=== PATIENT | female | born 1940 | race Caucasian/White ===

== ENCOUNTER 2022-09-07 15:32 | Inpatient (IN) | payer MEDICARE, OTHER ==
[~2022-09-07] VITALS: Ht 165.1 cm; Wt 77.1 kg
[2022-09-07] MEDS ORDERED: HYDROCODONE/APAP 5-325MG TABLET ONE (15:37)
[2022-09-07] MEDS ORDERED: ESTR1TAB17 MT (15:40)
[2022-09-07] MEDS ORDERED: ATOR20TA (15:40)
[2022-09-07] MEDS ORDERED: IPRA42SP BNOSTRILS (15:40)
[2022-09-07] MEDS ORDERED: BUPR-319 MT (15:40)
[2022-09-07] MEDS ORDERED: PHEN37.58 MT (15:40)
[2022-09-07] MEDS ORDERED: LEVO50TA8 MT (15:40)
[2022-09-07] MEDS ORDERED: COLE1TAB2 MT (15:40)
--- NOTE | 2022-09-07 15:44 | NUR ---
PT IS IN ROOM #1A. DR CASTELLANO EVALUATED THE PT.
[2022-09-07] MEDS ORDERED: HYDROCODONE/APAP 5-325MG TABLET PO ONE (15:45)
[2022-09-07] MEDS ORDERED: IV NORMAL SALINE 1000 ML BAG IV ONE (16:45)
[2022-09-07] MEDS ORDERED: ONDANSETRON 4 MG/2 ML VIAL IV ONE ×2 (16:45→18:45)
[2022-09-07] MEDS ORDERED: HYDROMORPHONE 1 MG/1 ML DISP.SYRIN IV ONE (16:45)
[2022-09-07] MEDS ORDERED: ONDANSETRON 4 MG/2 ML VIAL ONE ×2 (16:49→18:44)
[2022-09-07] MEDS ORDERED: HYDROMORPHONE 1 MG/1 ML DISP.SYRIN ONE (16:49)
[2022-09-07 17:02] LABS: HEMATOCRIT 39.3 % (31.2-41.9); MEAN CORPUSCULAR HEMOGLOBIN 29.6 uug (24.7-32.8); PLATELET COUNT (AUTO) 235 K/uL (179-408)
[2022-09-07 17:15] LABS: CREATININE 1.3 mg/dL (0.6-1.3); POTASSIUM 4.4 mmol/L (3.5-5.1)
[2022-09-07] MEDS ORDERED: PROPOFOL 200 MG/20 ML BOTTLE IV ONE (17:15)
[2022-09-07] MEDS ORDERED: PROPOFOL 200 MG/20 ML BOTTLE ONE (17:25)
--- NOTE | 2022-09-07 17:30 | NUR ---
Moderate sedation for closed reduction of left hip. spoke with patient and son (at bedside) about procedure and plan of care. Diogenes MIRZA, David TAILING HAND, Lucho BRADSHAWP, and myself at bedside. Please see moderate sedation for further procedure information.
--- NOTE | 2022-09-07 17:36 | NUR ---
CLOSED REDUCTION OF LEFT HIP WITH MODERATE SEDATION WAS PERFORMED BY DR CASTELLANO. PT TOLERATED TO PROCEDURE WITHOUT COMPLICATIONS. NO SOB, NO N/V. CONTINUE TO MONITOR THE PT.
[2022-09-07] MEDS ORDERED: ONDANSETRON 4 MG/2 ML VIAL IV PRN (18:45)
[2022-09-07] MEDS ORDERED: REMEDY ESSENTIAL ZINC PASTE 113 GM TP PRN (18:45)
[2022-09-07] MEDS ORDERED: HOME MED MISCELLANEOUS XX SCH ×2 (18:45)
[2022-09-07] MEDS ORDERED: ACETAMINOPHEN 325 MG TABLET PO PRN (18:45)
[2022-09-07] MEDS ORDERED: MAGNESIUM HYDROXIDE 30 ML LIQUID UDC PO PRN (18:45)
--- NOTE | 2022-09-07 19:28 | NUR ---
Zofran 4mg IV @1845 given by previous nurse Diogenes MIRZA. RN did not document.
--- NOTE | 2022-09-07 19:30 | NUR ---
Patient placed on bedpan. Patient urinated large yellow urine.
--- NOTE | 2022-09-07 19:45 | NUR ---
Patient has been admitted to third floor room 330
--- NOTE | 2022-09-07 20:15 | NUR ---
Dr. Bojorquez spoke with Dr. Gonzalez for orthopedic consult.
--- NOTE | 2022-09-07 20:46 | NUR ---
Report given to Anthony MIRZA.
[2022-09-07] MEDS ORDERED: ATORVASTATIN 20 MG TABLET PO SCH (21:00)
--- NOTE | 2022-09-07 21:17 | NUR ---
Patient voided in bed ayala. Voided large clear yellow urine.
[2022-09-07 21:25] VITALS: BP 192/81
[2022-09-07] MEDS ORDERED: LORAZEPAM 2 MG/1 ML VIAL IV PRN (21:30)
--- NOTE | 2022-09-07 21:34 | NUR ---
Patient taken to third floor room 330 via gurney with personal belongings. Patient in stable condition, no signs of distress. Anthony RN aware of patients arrival.
[2022-09-07] MEDS: HYDROCODONE/APAP 5-325MG TABLET PO PRN (22:29)
[2022-09-07] MEDS: ENOXAPARIN SODIUM 40 MG/0.4 ML DISP.SYRIN SQ SCH (22:30)
[2022-09-07] MEDS: IV D5/ 0.9% NACL 1,000 ML IV PRN (22:32)
[2022-09-07] MEDS ORDERED: hydrALAZINE HCL 20 MG/1 ML VIAL IV PRN (23:30)
--- NOTE | 2022-09-08 | NUR ---
@2130 PATIENT ADMITTED FROM ER IN STABLE CONDITION. GENTLY TRANSFERRED TO BED AND MADE COMFORTABLE. ALL BELONGINGS INVENTORIED. ALL DUE MEDICATIONS GIVEN ORDERED. IV FLUID STARTED D5 NS @ 50CC/HR VIA RFA IV LINE. PATIENT NOTED WITH ORDER FOR FRANKS CATHETER INSERTION BUT PATIENT IS REFUSING TO HAVE FRANKS CATHETER AT THIS TIME AND PATIENT IS OKAY WITH [place]. MADE AWARE. @2200 PATIENT'S INITIAL V/S TAKEN AND NOTED WITH BP 195/81, HR 61, TEMP 98.5. NOTIFIED WITH NEW FOR HYDRALAZINE IVP Q6H PRN FOR SBP> 160 NOTED AND CARRIED OUT. PATIENT C/O PAIN OF LEFT HIP 03/24. PAIN MEDICATION GIVEN. REASSESSMENT DONE AND MEDICATION NOTED EFFECTIVE. PATIENT SLEEPING BUT EASILY AMUSABLE. V/S TAKEN AND NOTED BP 155/82, HR 66, TEMP 98.4.
[2022-09-08] MEDS: HYDROMORPHONE 1 MG/1 ML DISP.SYRIN IV PRN ×2 (03:33→13:57)
[2022-09-08 04:00] VITALS: BP 152/64
[2022-09-08] MEDS: LEVOTHYROXINE SODIUM 50 MCG TABLET PO SCH (06:16)
--- NOTE | 2022-09-08 06:50 | NUR ---
patient slept well. patient was noted with c/o pain of left hip during shift. pain medication given and noted effective. no sob or distress noted. patient was noted with episode of emesis x1.Zofran ivp given to patient. RFA iv line intact and patent. iv fluids running at 50cc/hr. all needs anticipated and met. will endorse to day shift.
[2022-09-08 06:52] LABS: HEMATOCRIT 35.7 % (31.2-41.9); MEAN CORPUSCULAR HEMOGLOBIN 30.4 uug (24.7-32.8); MEAN CORPUSCULAR VOLUME 89.7 fL (75.5-95.3); PLATELET COUNT (AUTO) 210 K/uL (179-408)
[2022-09-08] MEDS ORDERED: PANTOPRAZOLE SODIUM 40 MG TABLET.DR PO SCH (07:00)
[2022-09-08 07:02] LABS: CREATININE 1.3 mg/dL (0.6-1.3); MAGNESIUM 1.7 mg/dL (1.8-2.4); PHOSPHOROUS 4.7 mg/dL (2.5-4.9); POTASSIUM 4.2 mmol/L (3.5-5.1)
[2022-09-08] MEDS: PANTOPRAZOLE SODIUM 40 MG VIAL IV SCH (08:45)
[2022-09-08] MEDS: ESTRADIOL 1 MG TABLET PO SCH (08:50)
[2022-09-08] MEDS: IPRATROPIUM BROMIDE NASAL 15 ML BOTTLE 42 MCG/SPRAY NS SCH (08:51)
[2022-09-08] MEDS ORDERED: buPROPion XL 150 MG TAB.SR.24H PO SCH (09:00)
[2022-09-08] MEDS: HYDROCODONE/APAP 5-325MG TABLET PO PRN ×2 (09:37→22:18)
[2022-09-08] MEDS ORDERED: MAGNESIUM OXIDE 400 MG TABLET PO ONE (11:00)
[2022-09-08] MEDS ORDERED: VITAMINS A AND D OINT TP PRN (13:30)
[2022-09-08] MEDS ORDERED: ACETAMINOPHEN 325 MG TABLET PO PRN (14:00)
[2022-09-08] MEDS ORDERED: PHENTERMINE 37.5 MG PO PRN (15:15)
[2022-09-08] MEDS ORDERED: [UNRECOGNIZED DRUG - OTHER] PO PRN (15:15)
[2022-09-08 15:38] VITALS: BP 148/65
[2022-09-08] MEDS: COLESTIPOL 1 GM PO SCH (15:40)
--- NOTE | 2022-09-08 15:44 | NUR ---
patient son took her four rings home
[2022-09-08 16:15] VITALS: BP 130/67
[2022-09-08] MEDS ORDERED: diphenhydrAMINE 50 MG/1 ML VIAL IV PRN (17:45)
--- NOTE | 2022-09-08 18:52 | NUR ---
patient is alert, oriented x4, no sob, respirations are even nonlabored, skin warm and dry to touch, pain is managed with pain medications, patient teaching provided to be NPO midnight. patient verbalized understanding of it.
[2022-09-08 20:29] VITALS: BP 194/82
[2022-09-08] MEDS: ENOXAPARIN SODIUM 40 MG/0.4 ML DISP.SYRIN SQ SCH (21:00)
[2022-09-09] MEDS: IV D5/ 0.9% NACL 1,000 ML IV PRN (00:44)
[2022-09-09] MEDS: ZOLPIDEM 5 MG TABLET PO PRN (02:48)
[2022-09-09] MEDS: HYDROCODONE/APAP 5-325MG TABLET PO PRN (04:24)
[2022-09-09 04:35] VITALS: BP 137/59
--- NOTE | 2022-09-09 05:33 | NUR ---
Patient AAOx3 Pending Surgery to Left hip this am. C/o pain and discomfort lt hip repositioned Medication administered as ordered. Ambien given . NPO after midnight. Rufuse the vicente catheter placement. Preop checklist done.
[2022-09-09 06:25] LABS: HEMATOCRIT 35.6 % (31.2-41.9); MEAN CORPUSCULAR HEMOGLOBIN 30.1 uug (24.7-32.8); MEAN CORPUSCULAR VOLUME 90.2 fL (75.5-95.3); PLATELET COUNT (AUTO) 179 K/uL (179-408)
[2022-09-09 06:44] LABS: CREATININE 1.1 mg/dL (0.6-1.3); POTASSIUM 4.1 mmol/L (3.5-5.1)
[2022-09-09] MEDS: LEVOTHYROXINE SODIUM 50 MCG TABLET PO SCH (06:44)
[2022-09-09 06:47] LABS: MAGNESIUM 1.8 mg/dL (1.8-2.4)
[2022-09-09] MEDS ORDERED: KETOROLAC TROMETHAMINE 30 MG INJ IM ONE (08:55)
[2022-09-09] MEDS ORDERED: LIDOCAINE-MPF 2% 5 ML VIAL IJ ONE (08:55)
[2022-09-09] MEDS ORDERED: GLYCOPYRROLATE 0.2 MG/ML VIAL IJ ONE (08:55)
[2022-09-09] MEDS ORDERED: ONDANSETRON 4 MG/2 ML VIAL IV ONE (08:55)
[2022-09-09] MEDS ORDERED: PROPOFOL 200 MG/20 ML BOTTLE IV ONE (08:55)
[2022-09-09] MEDS ORDERED: DEXAMETHASONE SOD PHOSPHATE 4 MG INJ IV ONE (08:55)
[2022-09-09] MEDS ORDERED: CEFAZOLIN 1 G VIAL IM ONE (08:55)
[2022-09-09] MEDS: ESTRADIOL 1 MG TABLET PO SCH (09:00)
[2022-09-09] MEDS: PANTOPRAZOLE SODIUM 40 MG VIAL IV SCH (09:00)
[2022-09-09] MEDS: buPROPion XL 150 MG TAB.SR.24H PO SCH (09:00)
[2022-09-09] MEDS ORDERED: VANCOMYCIN 1000 MG VIAL ONE (09:01)
[2022-09-09] MEDS ORDERED: FENTANYL CITRATE 100 MCG/2 ML AMPUL ONE (09:02)
[2022-09-09] MEDS ORDERED: HYDROMORPHONE 2 MG/1 ML DISP.SYRIN ONE (09:02)
[2022-09-09] MEDS ORDERED: MIDAZOLAM HCL 2 MG/2 ML VIAL ONE (09:02)
[2022-09-09] MEDS: IPRATROPIUM BROMIDE NASAL 15 ML BOTTLE 42 MCG/SPRAY NS SCH (09:24)
[2022-09-09] MEDS ORDERED: IV D5W-0.45% NS +20 KCL 1,000 ML IV PRN (12:45)
[2022-09-09] MEDS ORDERED: MORPHINE SULFATE 4 MG/1 ML DISP.SYRIN IV PRN (12:45)
[2022-09-09] MEDS: COLESTIPOL 1 GM PO SCH (15:56)
[2022-09-09] MEDS: HYDROCODONE/APAP 10-325 MG TABLET PO PRN ×2 (16:00→23:12)
[2022-09-09] MEDS: CEFAZOLIN 1 G in IV DEXTROSE 5% 50 ML IV SCH (17:31)
[2022-09-09 18:28] VITALS: BP 129/69
--- NOTE | 2022-09-09 19:43 | NUR ---
Returned to floor from surgery s/p left total hip arthroplasty. Perdomo in place with clear yellow urine. Voided 400 cc in surgery.Per report prior to returning to floor BP s/p LTHA 164/75. Upon recheck on the floor BP 141/61 P-81. New orders for Fluids-, Ancef IV ABT. Continue Lovenox in am and OOB with PT in a.m.
[2022-09-09 20:10] VITALS: BP 123/70
[2022-09-10] MEDS: ZOLPIDEM 5 MG TABLET PO PRN (00:07)
[2022-09-10] MEDS ORDERED: CEFAZOLIN 1 G VIAL ONE (00:48)
[2022-09-10] MEDS: CEFAZOLIN 1 G in IV DEXTROSE 5% 50 ML IV SCH (01:19)
[2022-09-10 05:00] VITALS: BP 150/66
[2022-09-10] MEDS: HYDROCODONE/APAP 10-325 MG TABLET PO PRN ×3 (06:19→23:37)
[2022-09-10] MEDS: LEVOTHYROXINE SODIUM 50 MCG TABLET PO SCH (06:20)
[2022-09-10 06:58] LABS: HEMATOCRIT 24.9 % (31.2-41.9); MEAN CORPUSCULAR HEMOGLOBIN 29.8 uug (24.7-32.8); MEAN CORPUSCULAR VOLUME 90.6 fL (75.5-95.3); PLATELET COUNT (AUTO) 164 K/uL (179-408)
--- NOTE | 2022-09-10 06:59 | NUR ---
Slept well, no distress noted. No adverse reaction from IV antibiotic. Rt hip incision with dressing intact. Abductor pillow in place. Perdomo cath intact draining to yellow color urine, catheter care provided. Needs assessed and attended to.
[2022-09-10 07:36] LABS: CARBON DIOXIDE 26 mmol/L (21-32); CHLORIDE 104 mmol/L (98-107); CREATININE 1.5 mg/dL (0.6-1.3); GLUCOSE 141 mg/dL (74-106); POTASSIUM 5.1 mmol/L (3.5-5.1); UREA NITROGEN, BLOOD 20 mg/dL (7-18)
[2022-09-10] MEDS: buPROPion XL 150 MG TAB.SR.24H PO SCH (08:41)
[2022-09-10] MEDS: HYDROMORPHONE 1 MG/1 ML DISP.SYRIN IV PRN ×2 (08:41→20:53)
[2022-09-10] MEDS: ENOXAPARIN SODIUM 40 MG/0.4 ML DISP.SYRIN SQ SCH (08:42)
[2022-09-10] MEDS: ESTRADIOL 1 MG TABLET PO SCH (08:42)
[2022-09-10] MEDS: PANTOPRAZOLE SODIUM 40 MG VIAL IV SCH (08:42)
[2022-09-10] MEDS: IPRATROPIUM BROMIDE NASAL 15 ML BOTTLE 42 MCG/SPRAY NS SCH (08:43)
[2022-09-10] MEDS ORDERED: DEXTROSE 5 %-0.45 % NACL 500 ML IV.SOLN IV PRN (09:00)
[2022-09-10] MEDS ORDERED: IV D5 1/2 NS 1000 ML 1,000 ML IV PRN (09:15)
[2022-09-10] MEDS: diphenhydrAMINE 25 MG CAP PO PRN (11:42)
[2022-09-10 12:00] VITALS: BP 128/46
[2022-09-10] MEDS: COLESTIPOL 1 GM PO SCH (15:26)
[2022-09-10 15:55] VITALS: BP 143/62
--- NOTE | 2022-09-10 19:41 | NUR ---
RECEIVED REPORT FROM YUKI GRACE, HERBERT SHIFT. PATIENT IS ALERT & ORIENTED X4 AND SPEAKS YI. VITAL SIGNS STABLE. PATIENT TOLERATES PO MEDICATIONS AND DIET WELL. PATIENT PARTICIPATES WITH PHYSICAL THERAPY SCHEDULED. PATIENT HAD COMPLAINT OF PAIN. RN PROVIDED MEDICATIONS ORDERED BY MD. PATIENT EXPRESSED RELIEF. ALL NEEDS ATTENDED TO AT THIS TIME. NO ACUTE DISTRESS NOTED. FALL PRECAUTIONS IN PLACE. ENDORSED CARE TO YUKI LOYD, HERBERT SHIFT FOR CONTINUATION OF CARE.
[2022-09-10 20:00] VITALS: BP 154/50
[2022-09-11] MEDS: diphenhydrAMINE 25 MG CAP PO PRN (02:14)
[2022-09-11] MEDS: ZOLPIDEM 5 MG TABLET PO PRN (03:21)
[2022-09-11 04:00] VITALS: BP 143/75
[2022-09-11] MEDS: HYDROMORPHONE 1 MG/1 ML DISP.SYRIN IV PRN ×2 (04:53→08:52)
[2022-09-11] MEDS: LEVOTHYROXINE SODIUM 50 MCG TABLET PO SCH (06:17)
[2022-09-11] MEDS ORDERED: PANTOPRAZOLE SODIUM 40 MG TABLET.DR PO SCH (07:00)
[2022-09-11 07:27] LABS: HEMATOCRIT 22.2 % (31.2-41.9); MEAN CORPUSCULAR HEMOGLOBIN 30.9 uug (24.7-32.8); MEAN CORPUSCULAR VOLUME 90.5 fL (75.5-95.3); PLATELET COUNT (AUTO) 173 K/uL (179-408)
[2022-09-11 07:35] LABS: CREATININE 1.3 mg/dL (0.6-1.3); POTASSIUM 4.7 mmol/L (3.5-5.1)
[2022-09-11] MEDS: buPROPion XL 150 MG TAB.SR.24H PO SCH (08:58)
[2022-09-11] MEDS: ESTRADIOL 1 MG TABLET PO SCH (08:59)
[2022-09-11] MEDS: IPRATROPIUM BROMIDE NASAL 15 ML BOTTLE 42 MCG/SPRAY NS SCH (09:00)
[2022-09-11] MEDS: ENOXAPARIN SODIUM 40 MG/0.4 ML DISP.SYRIN SQ SCH (09:05)
[2022-09-11] MEDS ORDERED: MAGNESIUM OXIDE 400 MG TABLET PO ONE (10:00)
[2022-09-11] MEDS ORDERED: ENOX40DI SQ ×2 (11:31→21:13)
[2022-09-11 11:38] VITALS: BP 134/44
[2022-09-11] MEDS ORDERED: SORBITOL 70% SOLUTION 30 ML UDC PO ONE (11:45)
[2022-09-11] MEDS ORDERED: LACTULOSE 20 G/30 ML LIQUID UDC PO ONE (11:45)
[2022-09-11] MEDS: COLESTIPOL 1 GM PO SCH (14:20)
--- NOTE | 2022-09-11 15:27 | NUR ---
PT STABLE PT TREATED TODAY. ABDUCTION PILLOW IN PLACE WHEN IN BED . MEDICATED FOR PAIN PRIOR TO PT. FRANKS CATHETER IN PLACE DRAINING ADEQUATE URINE. DISCHARGE INSTRUCTION GIVEN. PT DISCHARGED TO ARU.
[2022-09-11 15:49] VITALS: BP 140/52
[2022-09-11] MEDS ORDERED: DIPH25CA83 PO (21:13)
[2022-09-11] MEDS ORDERED: ESTR0.5T PO (21:13)
[2022-09-11] MEDS ORDERED: ACET-2154 PO (21:13)
[2022-09-11] MEDS ORDERED: PHEN37.511 PO (21:13)
[2022-09-11] MEDS ORDERED: MAGN400O6 PO (21:13)
[2022-09-11] MEDS ORDERED: COLE1TAB2 PO (21:13)
[2022-09-11] MEDS ORDERED: BUPR300T52 PO (21:13)
[2022-09-11] MEDS ORDERED: LEVO50TA8 PO (21:13)
[2022-09-11] MEDS ORDERED: ZOLP5TAB8 PO (21:13)
[2022-09-11] MEDS ORDERED: HYDR-3980 PO (21:13)
[2022-09-11] MEDS ORDERED: PANT40TA2 PO (21:13)
== END 2022-09-11 16:14 | DRG 521 ==
LOC: ER 15:32 → MEDSURG3 20:52
PROVIDERS: ADMIT Nurse Practitioner Acute Care; ATTEND Nurse Practitioner Acute Care
PROC: 0SSBXZZ Reposition Left Hip Joint, External Approach (ICD-10-PCS; 2022-09-07)
PROC: 0SRB0JA Replacement of Left Hip Joint with Synthetic Substitute, Uncemented, Open Approach (ICD-10-PCS; principal; 2022-09-09)
PROC: 0YU Anatomical Regions, Lower Extremities, Supplement (ICD-10-PCS; 2022-09-09)
DX: S32.492A Other specified fracture of left acetabulum, initial encounter for closed fracture (principal); N17.0 Acute kidney failure with tubular necrosis; S73.015A Posterior dislocation of left hip, initial encounter; D62 Acute posthemorrhagic anemia; E03.9 Hypothyroidism, unspecified; E78.5 Hyperlipidemia, unspecified; F32.A Depression, unspecified; Z86.73 Personal history of transient ischemic attack (TIA), and cerebral infarction without residual deficits; Z90.49 Acquired absence of other specified parts of digestive tract; Z90.710 Acquired absence of both cervix and uterus; E83.42 Hypomagnesemia; W01.0XXA Fall on same level from slipping, tripping and stumbling without subsequent striking against object, initial encounter; Y93.89 Activity, other specified; Y92.89 Other specified places as the place of occurrence of the external cause; K59.00 Constipation, unspecified
CPT/HCPCS: 36415; 71045; 72192; 73501; 73502; 73503; 83735; 84100; 84443; 85018; 85025; 85730; 93005; 93307; A4663; C9113; G0378; G0500; J0690; J1100; J1170; J1200; J1650; J1885; J2250; J2405; J3010; J3370; J3490; J7040; J7042; Q0163

== ENCOUNTER 2022-09-11 19:13 | Inpatient (IN) | payer MEDICARE, OTHER ==
[~2022-09-11] VITALS: Ht 170.2 cm; Wt 79.4 kg
[~2022-09-11 19:13] MED LIST: BUPR-319 MT; COLE1TAB2 MT; ENOX40DI SQ; ESTR1TAB17 MT; IPRA42SP BNOSTRILS; LEVO50TA8 MT; PHEN37.58 MT
--- NOTE | 2022-09-11 19:30 | NUR ---
received a 81 yr old female from med-surg in patient to rehab with an admitting diagnosis of left hip fracture secondary to a fall. S/P left total hip artthroplasty (09/07) AAOx4 All needs attended. VSS Needs attended. Hx of HTN, TIA, Hypothyroidism. Perdomo catheter intact draining yellow urine. I & O monitor. Left hip incision with staple intact, no drainage noted. Denies any pain nor any discomfort. Abduction pillow in between legs. Kept comfortable. Dr Christensen aware of patient's admission. Dr Hermosillo paged and aware of patient's admission and also to have meds reconcile. Will monitor patient. Fall precautions maintained. Siderails up for safety.
[2022-09-11] MEDS ORDERED: REMEDY ESSENTIAL ZINC PASTE 113 GM TOP PRN (19:45)
[2022-09-11 20:00] VITALS: BP 156/51
[2022-09-11] MEDS ORDERED: PANT40TA2 PO (21:13)
[2022-09-11] MEDS ORDERED: LEVO50TA8 PO (21:13)
[2022-09-11] MEDS ORDERED: ZOLP5TAB8 PO (21:13)
[2022-09-11] MEDS ORDERED: ENOX40DI SQ (21:13)
[2022-09-11] MEDS ORDERED: ACET-2154 PO (21:13)
[2022-09-11] MEDS ORDERED: BUPR300T52 PO (21:13)
[2022-09-11] MEDS ORDERED: HYDR-3980 PO (21:13)
[2022-09-11] MEDS ORDERED: PHEN37.511 PO (21:13)
[2022-09-11] MEDS ORDERED: COLE1TAB2 PO (21:13)
[2022-09-11] MEDS ORDERED: DIPH25CA83 PO (21:13)
[2022-09-11] MEDS ORDERED: ESTR0.5T PO (21:13)
[2022-09-11] MEDS ORDERED: MAGN400O6 PO (21:13)
[2022-09-12] VITALS: BP 144/57
[2022-09-12 04:00] VITALS: BP 144/57
[2022-09-12 07:49] VITALS: BP 134/42
[2022-09-12] MEDS: GLUCERNA SHAKE 237 ML CAN PO SCH (09:15)
[2022-09-12] MEDS: HYDROCODONE/APAP 10-325 MG TABLET PO PRN ×3 (09:26→22:18)
[2022-09-12] MEDS ORDERED: ESTRADIOL 1 MG TABLET PO SCH (12:30)
[2022-09-12] MEDS ORDERED: IPRATROPIUM BROMIDE NASAL 15 ML BOTTLE 42 MCG/SPRAY NS PRN (12:30)
[2022-09-12] MEDS: PANTOPRAZOLE SODIUM 40 MG TABLET.DR PO SCH (13:25)
[2022-09-12] MEDS: LEVOTHYROXINE SODIUM 50 MCG TABLET PO SCH (13:25)
[2022-09-12] MEDS: ESTRADIOL 1 MG TABLET PO SCH (13:27)
[2022-09-12] MEDS: ENOXAPARIN SODIUM 40 MG/0.4 ML DISP.SYRIN SQ SCH (13:32)
--- NOTE | 2022-09-12 13:34 | NUR ---
Meds were reconciled and scheduled for administration at 1230 but were not verified until 1320. Meds were administered as soon as they were available. [place] spray was changed to PRN per pt's stating, "I only use that when my nose is running, just as needed."
--- NOTE | 2022-09-12 14:30 | NUR ---
INTERDISCIPLINARY TEAM CONFERENC
[2022-09-12 15:31] VITALS: BP 119/39
[2022-09-12 20:28] VITALS: BP 156/65
[2022-09-12] MEDS: DOCUSATE SODIUM 100 MG CAPSULE PO SCH (20:50)
[2022-09-13 04:34] VITALS: BP 123/58
[2022-09-13] MEDS: HYDROCODONE/APAP 10-325 MG TABLET PO PRN ×3 (05:08→21:06)
--- NOTE | 2022-09-13 05:53 | NUR ---
AAOx4 Patient hd a left total hip replacement on in [facility]. Left hip dressing clean dry and intact. Refused to abduction pillow, she said it makes my leg stiff.Fall precautions maintained. Pain meds given as needed with relief noted. Perdomo catheter intact draining yellow urine. Incontinent of BM x1 Kept clean and dry. Will monitor patient. Siderails up for safety. Call rosas within reach. All needs attended and met.
[2022-09-13] MEDS: PANTOPRAZOLE SODIUM 40 MG TABLET.DR PO SCH (06:04)
[2022-09-13] MEDS: LEVOTHYROXINE SODIUM 50 MCG TABLET PO SCH (06:05)
[2022-09-13 07:33] VITALS: BP 137/44
[2022-09-13] MEDS: GLUCERNA SHAKE 237 ML CAN PO SCH (09:00)
[2022-09-13] MEDS: ESTRADIOL 1 MG TABLET PO SCH (09:34)
[2022-09-13] MEDS: ENOXAPARIN SODIUM 40 MG/0.4 ML DISP.SYRIN SQ SCH (09:36)
--- NOTE | 2022-09-13 09:51 | NUR ---
Pt states her pain is "alright" now, but that when she gets up with PT "it's bothersome for sure and it gets worse as I go along." [place] given prior to PT, per pt request.
[2022-09-13 16:00] VITALS: BP 123/48
[2022-09-13 20:38] VITALS: BP 148/68
[2022-09-13] MEDS: DOCUSATE SODIUM 100 MG CAPSULE PO SCH (21:05)
[2022-09-14 05:00] VITALS: BP 156/58
--- NOTE | 2022-09-14 05:14 | NUR ---
AAOx4 Left hip dressing intact. Pain meds given as needed. No ill effects noted. Compliant with care. Took meds without difficulty. No acute distress noted. Abduction pillow in between legs. Voiding in bedpan. VSS. All needs attended and met.
[2022-09-14] MEDS: PANTOPRAZOLE SODIUM 40 MG TABLET.DR PO SCH (06:07)
[2022-09-14] MEDS: LEVOTHYROXINE SODIUM 50 MCG TABLET PO SCH (06:07)
[2022-09-14 07:38] VITALS: BP 137/50
[2022-09-14] MEDS: ESTRADIOL 1 MG TABLET PO SCH (09:13)
[2022-09-14] MEDS: GLUCERNA SHAKE 237 ML CAN PO SCH (09:13)
[2022-09-14] MEDS: ENOXAPARIN SODIUM 40 MG/0.4 ML DISP.SYRIN SQ SCH (09:21)
[2022-09-14] MEDS: HYDROCODONE/APAP 10-325 MG TABLET PO PRN ×3 (09:21→21:09)
--- NOTE | 2022-09-14 11:00 | NUR ---
Patient c/o pain on her left posterior knee during ambulation with physical therapy. Patient described her pain as 10 from a scale of 0 to 10. Patient is s/p left hip replacement SCD's in place, on lovenox for VTE. Cheryl. Karyna JORDAN made aware of patient's complaints.
[2022-09-14 16:09] VITALS: BP 113/46
[2022-09-14 20:00] VITALS: BP 140/50
[2022-09-14] MEDS: DOCUSATE SODIUM 100 MG CAPSULE PO SCH (21:09)
[2022-09-15] MEDS: ZOLPIDEM 5 MG TABLET PO PRN (00:10)
[2022-09-15] MEDS: LEVOTHYROXINE SODIUM 50 MCG TABLET PO SCH (06:17)
[2022-09-15] MEDS: PANTOPRAZOLE SODIUM 40 MG TABLET.DR PO SCH (06:17)
[2022-09-15 07:30] VITALS: BP 141/53
--- NOTE | 2022-09-15 07:39 | NUR ---
Report received 1924,patient is AAOX4 no confusion observed, very talkative, interact very well with staff. She is compliant with meds. Sleeping med administered, she slept for some few hours. No respiratory distress observed. Patient is now in her bed stable. Will continue to monitor for safety.
[2022-09-15] MEDS ORDERED: diphenhydrAMINE 50 MG/1 ML VIAL IV PRN (08:00)
[2022-09-15] MEDS: GLUCERNA SHAKE 237 ML CAN PO SCH (08:45)
[2022-09-15] MEDS: ESTRADIOL 1 MG TABLET PO SCH (08:45)
[2022-09-15] MEDS: HYDROCODONE/APAP 10-325 MG TABLET PO PRN ×2 (08:46→18:14)
[2022-09-15] MEDS: ENOXAPARIN SODIUM 40 MG/0.4 ML DISP.SYRIN SQ SCH (08:48)
[2022-09-15] MEDS: diphenhydrAMINE 25 MG CAP PO PRN (09:57)
[2022-09-15] MEDS ORDERED: ACETAMINOPHEN 325 MG TABLET PO PRN (21:30)
[2022-09-15] MEDS: DOCUSATE SODIUM 100 MG CAPSULE PO SCH (21:40)
[2022-09-16] MEDS: HYDROCODONE/APAP 10-325 MG TABLET PO PRN ×3 (00:11→21:18)
[2022-09-16] MEDS: ZOLPIDEM 5 MG TABLET PO PRN ×3 (00:12→23:38)
[2022-09-16 05:22] VITALS: BP 155/46
[2022-09-16] MEDS: diphenhydrAMINE 25 MG CAP PO PRN ×3 (05:59→21:24)
[2022-09-16] MEDS: LEVOTHYROXINE SODIUM 50 MCG TABLET PO SCH (06:00)
[2022-09-16] MEDS: PANTOPRAZOLE SODIUM 40 MG TABLET.DR PO SCH (06:00)
[2022-09-16 07:36] VITALS: BP 153/60
[2022-09-16 07:47] VITALS: BP 109/42
--- NOTE | 2022-09-16 07:51 | NUR ---
Patient is AAOX4, she is stable except for complaint of pain. She is compliant with meds. No issues observed with patient. Will continue to monitor for safety.
[2022-09-16] MEDS: ESTRADIOL 1 MG TABLET PO SCH (08:34)
[2022-09-16] MEDS: ENOXAPARIN SODIUM 40 MG/0.4 ML DISP.SYRIN SQ SCH (08:35)
[2022-09-16] MEDS: GLUCERNA SHAKE 237 ML CAN PO SCH (08:35)
--- NOTE | 2022-09-16 10:00 | NUR ---
OT at bedside states that pt's speech "slowing down" or mumbles. Pt speaking appropriately alert and oriented x 4. No slurred speech noted. Pt able to move tounge on all directions. rangel eyes able to track on all directions. Pt able to feel sensations soft and sharp on UE's and LEs. No drift noted. No weakness noted on upper extremities. No weakness on RIGHT leg noted. Left leg weak and noted +2 edema secondary to sx site. Pt is in no acute distress. Call light is within reach.
[2022-09-16 16:38] VITALS: BP 127/54
[2022-09-16 20:00] VITALS: BP 164/55
[2022-09-16] MEDS: DOCUSATE SODIUM 100 MG CAPSULE PO SCH (21:17)
[2022-09-17 04:00] VITALS: BP 139/55
[2022-09-17] MEDS: diphenhydrAMINE 25 MG CAP PO PRN ×3 (04:43→22:42)
[2022-09-17] MEDS: HYDROCODONE/APAP 10-325 MG TABLET PO PRN ×3 (04:43→22:51)
[2022-09-17] MEDS: LEVOTHYROXINE SODIUM 50 MCG TABLET PO SCH (07:45)
[2022-09-17] MEDS: PANTOPRAZOLE SODIUM 40 MG TABLET.DR PO SCH (07:45)
[2022-09-17 08:07] VITALS: BP 140/46
[2022-09-17] MEDS: GLUCERNA SHAKE 237 ML CAN PO SCH (08:16)
[2022-09-17] MEDS: ESTRADIOL 1 MG TABLET PO SCH (09:09)
[2022-09-17] MEDS: ENOXAPARIN SODIUM 40 MG/0.4 ML DISP.SYRIN SQ SCH (09:10)
[2022-09-17 16:40] VITALS: BP 159/63
--- NOTE | 2022-09-17 17:04 | NUR ---
Pt CONSTIPATED. Disimpaction performed with some BM results. There is more BM there. Pt wants to rest at this time. May try again later or try a tap water enema. Will endorse.
[2022-09-17 20:46] VITALS: BP 146/48
[2022-09-17] MEDS: DOCUSATE SODIUM 100 MG CAPSULE PO SCH (21:34)
[2022-09-17] MEDS: ZOLPIDEM 5 MG TABLET PO PRN (22:43)
[2022-09-18] MEDS: ZOLPIDEM 5 MG TABLET PO PRN (00:16)
[2022-09-18 04:08] VITALS: BP 147/67
[2022-09-18] MEDS: PANTOPRAZOLE SODIUM 40 MG TABLET.DR PO SCH (06:13)
[2022-09-18] MEDS: LEVOTHYROXINE SODIUM 50 MCG TABLET PO SCH (06:13)
--- NOTE | 2022-09-18 07:00 | NUR ---
Patient asleep but arousable, no sob no chest pain, cont on pain management due left hip s/p orif, dressing intact, no bleeding noted, cont to monitor.
[2022-09-18 07:34] LABS: HEMATOCRIT 22.3 % (31.2-41.9); MEAN CORPUSCULAR HEMOGLOBIN 30.7 uug (24.7-32.8); MEAN CORPUSCULAR VOLUME 91.7 fL (75.5-95.3); PLATELET COUNT (AUTO) 395 K/uL (179-408)
[2022-09-18 07:41] VITALS: BP 149/47
[2022-09-18 08:02] LABS: BILIRUBIN,TOTAL 0.6 mg/dL (0.2-1.0); CREATININE 1.2 mg/dL (0.6-1.3); POTASSIUM 4.5 mmol/L (3.5-5.1); TOTAL PROTEIN, SERUM 6.1 g/dL (6.4-8.2)
[2022-09-18] MEDS: ENOXAPARIN SODIUM 40 MG/0.4 ML DISP.SYRIN SQ SCH (08:57)
[2022-09-18] MEDS: ESTRADIOL 1 MG TABLET PO SCH (09:11)
[2022-09-18] MEDS: GLUCERNA SHAKE 237 ML CAN PO SCH (09:11)
[2022-09-18] MEDS: HYDROCODONE/APAP 10-325 MG TABLET PO PRN ×3 (11:53→23:11)
[2022-09-18] MEDS: MIRALAX 17 GM POWD.PACK PO PRN (15:29)
[2022-09-18 16:00] VITALS: BP 150/63
--- NOTE | 2022-09-18 19:23 | NUR ---
Patient alert and oriented X4, able to communicate needs promptly and timely. Scheduled medication administered as ordered by MD. Medicated patient PRN for pain (left hip pain) based on pain level needs with relief. Patient complained of having a hard time, having a BM. Obtained orders from Dr. Garcia for Miralax PRN 17 gm and administered. Patient able to have a large formed BM. Care provided at routine intervals and as needed. No ELAINA during shift, patient remains at her baseline. Left hip surgical site healing well, no bleeding or s/s of infection noted. Treatment done as ordered; endorsed to incoming relieving RN.
[2022-09-18 20:22] VITALS: BP 107/50
[2022-09-18] MEDS: DOCUSATE SODIUM 100 MG CAPSULE PO SCH (21:31)
[2022-09-19] MEDS: diphenhydrAMINE 25 MG CAP PO PRN ×2 (04:13→13:03)
[2022-09-19 04:20] VITALS: BP 105/89
--- NOTE | 2022-09-19 04:34 | NUR ---
Patient awake, alert oriented, cont on pain management of the left hip, no sob no chest pain, left leg elevated with pillow, with episode of itching due to unknown reason. kept clean dry and comfortable, call light within reach.
[2022-09-19] MEDS: HYDROCODONE/APAP 10-325 MG TABLET PO PRN ×3 (05:44→20:59)
[2022-09-19] MEDS: LEVOTHYROXINE SODIUM 50 MCG TABLET PO SCH (06:32)
[2022-09-19] MEDS: PANTOPRAZOLE SODIUM 40 MG TABLET.DR PO SCH (06:33)
[2022-09-19] MEDS: ESTRADIOL 1 MG TABLET PO SCH (08:18)
[2022-09-19] MEDS: ENOXAPARIN SODIUM 40 MG/0.4 ML DISP.SYRIN SQ SCH (08:20)
[2022-09-19 08:22] LABS: BILIRUBIN,TOTAL 0.8 mg/dL (0.2-1.0); CREATININE 1.3 mg/dL (0.6-1.3); MAGNESIUM 1.6 mg/dL (1.8-2.4); PHOSPHOROUS 4.1 mg/dL (2.5-4.9); POTASSIUM 4.1 mmol/L (3.5-5.1); TOTAL PROTEIN, SERUM 5.8 g/dL (6.4-8.2)
[2022-09-19] MEDS: GLUCERNA SHAKE 237 ML CAN PO SCH (08:22)
[2022-09-19 08:59] LABS: HEMATOCRIT 22.4 % (31.2-41.9); PLATELET COUNT (AUTO) 313 K/uL (179-408)
[2022-09-19 09:00] VITALS: BP 134/52
[2022-09-19] MEDS ORDERED: MIRALAX 17 GM POWD.PACK PO SCH (09:00)
[2022-09-19] MEDS ORDERED: MAGNESIUM OXIDE 400 MG TABLET PO ONE (09:15)
--- NOTE | 2022-09-19 10:00 | NUR ---
CRITICAL LAB: Lauren from Lab called at 0939 with Critical Hgb level of 7.4. Dr. Jose cherry.
[2022-09-19 14:43] LABS: *BILIRUBIN,URIN NEGATIVE (NEGATIVE); *BLOOD, URINE NEGATIVE (NEGATIVE); *CLARITY,URINE CLEAR (CLEAR); *COLOR,URINE YELLOW (YELLOW); *KETONES,URINE NEGATIVE (NEGATIVE); LEUKOCYTE ESTERASE ,URINE NEGATIVE (NEGATIVE); NITRITE, URINE NEGATIVE (NEGATIVE); PH,URINE 5.5 (5.0-8.0); UGLUCOSE NEGATIVE (NEGATIVE)
--- NOTE | 2022-09-19 14:53 | NUR ---
INTERDISCIPLINARY TEAM CONFERENCE
[2022-09-19 15:01] LABS: BACTERIA,URINE FEW /HPF (NONE SEEN); RBC,URINE 0-3 /HPF (0-3); SQUAMOUS EPITHELIAL CELL,UR MODERATE /HPF (NONE SEEN); WBC,URINE NONE SEEN /HPF (0-3); YEAST,URINE FEW /HPF (NONE SEEN)
--- NOTE | 2022-09-19 15:26 | NUR ---
Pt reported a SORE THROAT and not feeling well at 1245. MD and I noted her WBCs at 19,300. MD ordered a covid test, which came back negative. UA and UC ordered and completed, notifed Dr. Garcia of results.
[2022-09-19 16:00] VITALS: BP 134/52
[2022-09-19 20:00] VITALS: BP 120/54
[2022-09-19] MEDS: DOCUSATE SODIUM 100 MG CAPSULE PO SCH (20:58)
[2022-09-20 04:00] VITALS: BP 120/54
[2022-09-20] MEDS: LEVOTHYROXINE SODIUM 50 MCG TABLET PO SCH (06:41)
[2022-09-20] MEDS: PANTOPRAZOLE SODIUM 40 MG TABLET.DR PO SCH (06:41)
--- NOTE | 2022-09-20 07:00 | NUR ---
Pt asked for repositioning and pain med x one, vital signs within normal level, call light within reach, all needs are attended and met.
[2022-09-20 07:14] LABS: HEMATOCRIT 21.9 % (31.2-41.9); MEAN CORPUSCULAR HEMOGLOBIN 30.3 uug (24.7-32.8); PLATELET COUNT (AUTO) 294 K/uL (179-408)
[2022-09-20 07:35] LABS: CREATININE 1.3 mg/dL (0.6-1.3); MAGNESIUM 1.9 mg/dL (1.8-2.4); PHOSPHOROUS 4.4 mg/dL (2.5-4.9); POTASSIUM 4.5 mmol/L (3.5-5.1)
[2022-09-20 08:00] VITALS: BP 138/52
[2022-09-20] MEDS: ESTRADIOL 1 MG TABLET PO SCH (08:30)
[2022-09-20] MEDS: GLUCERNA SHAKE 237 ML CAN PO SCH (08:33)
[2022-09-20] MEDS: ENOXAPARIN SODIUM 40 MG/0.4 ML DISP.SYRIN SQ SCH (08:33)
--- NOTE | 2022-09-20 10:33 | NUR ---
Dr. Garcia made aware of CRITICAL HGB at 7.3 as well as the new WBC now at 8.4 down from 19.3 yesterday.
[2022-09-20] MEDS: FERROUS GLUCONATE 324 MG TABLET PO SCH (11:43)
[2022-09-20] MEDS ORDERED: FLUCONAZOLE 200 MG TABLET PO ONE (12:00)
[2022-09-20] MEDS: HYDROCODONE/APAP 10-325 MG TABLET PO PRN ×2 (12:27→19:31)
[2022-09-20 16:00] VITALS: BP 145/56
[2022-09-20] MEDS: MIRALAX 17 GM POWD.PACK PO PRN (17:28)
--- NOTE | 2022-09-20 19:00 | NUR ---
Patient was screaming of excruciating pain at the beginning of the shift. [place] was administered. Dr. Christensen was alerted, he ordered one time Toradol IM. Patient stated that her pain was minimal one hour later after Toradol administration. I will continue to monitor pain every 4 hours.
[2022-09-20] MEDS ORDERED: KETOROLAC TROMETHAMINE 30 MG INJ IM ONE (19:45)
[2022-09-20] MEDS: diphenhydrAMINE 25 MG CAP PO PRN (21:03)
[2022-09-20] MEDS: DOCUSATE SODIUM 100 MG CAPSULE PO SCH (21:03)
[2022-09-20] MEDS: ZOLPIDEM 5 MG TABLET PO PRN (21:04)
[2022-09-21 04:00] VITALS: BP 138/61
[2022-09-21] MEDS: LEVOTHYROXINE SODIUM 50 MCG TABLET PO SCH (06:36)
[2022-09-21] MEDS: PANTOPRAZOLE SODIUM 40 MG TABLET.DR PO SCH (06:36)
[2022-09-21 08:00] VITALS: BP 126/82
--- NOTE | 2022-09-21 08:01 | NUR ---
0730-UPON ROUTINE SHIFT EXCHANGE ROUNDS PATIENT IN BED, ASLEEP, NO RESPIRATORY DISTRESS NOTED. NO FACIAL GRIMACES OR MOANING. SKIN WARM AND DRY TO THE TOUCH, AFEBRILE. PATIENT WAKES UP ON VERBAL COMMANDS, APPEARS COMFORTABLE. CALL LIGHT AT REACH, WILL CONT. TO MONITOR.
[2022-09-21] MEDS: HYDROCODONE/APAP 10-325 MG TABLET PO PRN ×3 (08:55→19:37)
[2022-09-21] MEDS: ENOXAPARIN SODIUM 40 MG/0.4 ML DISP.SYRIN SQ SCH (08:57)
[2022-09-21] MEDS: ESTRADIOL 1 MG TABLET PO SCH (09:20)
[2022-09-21] MEDS: GLUCERNA SHAKE 237 ML CAN PO SCH (09:20)
[2022-09-21] MEDS: FERROUS GLUCONATE 324 MG TABLET PO SCH (09:21)
[2022-09-21 16:00] VITALS: BP 141/51
[2022-09-21 20:00] VITALS: BP 134/59
[2022-09-21] MEDS: DOCUSATE SODIUM 100 MG CAPSULE PO SCH (20:35)
[2022-09-21] MEDS: diphenhydrAMINE 25 MG CAP PO PRN (21:47)
[2022-09-21] MEDS: ZOLPIDEM 5 MG TABLET PO PRN (21:47)
[2022-09-22 04:00] VITALS: BP 141/63
--- NOTE | 2022-09-22 04:51 | NUR ---
AAOx2-3 All needs attended. VSS No acute distress noted. All due meds given without difficulty. Fall precautions maintained. Siderails up for safety. Perdomo catheter intact draining yellow urine. I & O monitor. Repositioned for comfort. Turned q 2hrs. Will monitor patient. Denies any pain nor any discomfort.
[2022-09-22] MEDS: LEVOTHYROXINE SODIUM 50 MCG TABLET PO SCH (06:09)
[2022-09-22] MEDS: PANTOPRAZOLE SODIUM 40 MG TABLET.DR PO SCH (06:09)
[2022-09-22] MEDS: HYDROCODONE/APAP 10-325 MG TABLET PO PRN ×4 (07:17→20:54)
[2022-09-22 08:06] VITALS: BP 146/66
[2022-09-22] MEDS: FERROUS GLUCONATE 324 MG TABLET PO SCH (09:34)
[2022-09-22] MEDS: ESTRADIOL 1 MG TABLET PO SCH (09:34)
[2022-09-22] MEDS: ENOXAPARIN SODIUM 40 MG/0.4 ML DISP.SYRIN SQ SCH (09:36)
[2022-09-22] MEDS: GLUCERNA SHAKE 237 ML CAN PO SCH (09:36)
--- NOTE | 2022-09-22 14:58 | NUR ---
Pt in bed resting comfortably. Pt was able to ambulate with PT today with no discomfort. [place] given prior to activities at 0900. [place] request at at 250Pm and given. Patient is calm and relaxed. Breathing normal on room air. Respiration even, unlabored. No apparent acute distress noted. No new changes or concerns reported. Sn, will continue to monitor.
[2022-09-22 15:57] VITALS: BP 146/54
[2022-09-22 20:28] VITALS: BP 151/48
[2022-09-22] MEDS: DOCUSATE SODIUM 100 MG CAPSULE PO SCH (20:52)
[2022-09-22] MEDS: ZOLPIDEM 5 MG TABLET PO PRN (20:55)
[2022-09-22] MEDS: diphenhydrAMINE 25 MG CAP PO PRN (20:55)
[2022-09-23 04:40] VITALS: BP 146/53
[2022-09-23 05:20] LABS: MEAN CORPUSCULAR HEMOGLOBIN 29.8 uug (24.7-32.8)
[2022-09-23 05:23] LABS: HEMATOCRIT 21.6 % (31.2-41.9); MEAN CORPUSCULAR VOLUME 90.5 fL (75.5-95.3); PLATELET COUNT (AUTO) 257 K/uL (179-408)
[2022-09-23] MEDS: PANTOPRAZOLE SODIUM 40 MG TABLET.DR PO SCH (06:01)
[2022-09-23] MEDS: LEVOTHYROXINE SODIUM 50 MCG TABLET PO SCH (06:01)
[2022-09-23 06:04] LABS: BILIRUBIN,TOTAL 0.3 mg/dL (0.2-1.0); CREATININE 1.2 mg/dL (0.6-1.3); MAGNESIUM 1.8 mg/dL (1.8-2.4); PHOSPHOROUS 5.5 mg/dL (2.5-4.9); POTASSIUM 4.6 mmol/L (3.5-5.1); TOTAL PROTEIN, SERUM 5.9 g/dL (6.4-8.2)
--- NOTE | 2022-09-23 06:42 | NUR ---
Hgb 7.1, Hct 21.6, Platelets 257. Lab results sent to Dr. Christianson
--- NOTE | 2022-09-23 06:49 | NUR ---
Patient awake,alert oriented in room and was able to make needs known. PRN meds for pain management of the left hip and insomnia given as ordered. Pt kept clean dry and comfortable. Pt leg elevated with pillow. Pt was able to sleep afterwards.LABS: Hgb was low = 7.1. Dr. Christianson notified.
[2022-09-23 07:47] VITALS: BP 150/80
[2022-09-23] MEDS: ENOXAPARIN SODIUM 40 MG/0.4 ML DISP.SYRIN SQ SCH (08:36)
[2022-09-23] MEDS: FERROUS GLUCONATE 324 MG TABLET PO SCH (08:37)
[2022-09-23] MEDS: ESTRADIOL 1 MG TABLET PO SCH (08:37)
[2022-09-23] MEDS: GLUCERNA SHAKE 237 ML CAN PO SCH (08:41)
[2022-09-23] MEDS: HYDROCODONE/APAP 10-325 MG TABLET PO PRN ×3 (08:47→22:05)
--- NOTE | 2022-09-23 10:59 | NUR ---
Patient is alert, oriented x4, no sob, respirations are even nonlabored, skin warm and dry to touch, patient is able to get up herself from bed, with fww and able to go to bedside commode. no distress noted.
[2022-09-23 16:07] VITALS: BP 104/69
--- NOTE | 2022-09-23 17:53 | NUR ---
itz removed, as ordered, steri- strips applied, noted with slight red along the incision line, dr payne is made aware, and assessed it by dr payne, per dr payne it is good. no signs and symptoms of infection noted at incision site. Addendum: 09/23/22 at 1836 by BRITTANIE NIÑO RN, RN no drainage at incision site, well approximated, dry and clean.
--- NOTE | 2022-09-23 19:46 | NUR ---
patient is alert, oriented x4, no sob, respirations are even nonlabored, skin warm and dry to touch, report given to safety engineer RN. no acute distress noted.
[2022-09-23 20:41] VITALS: BP 131/44
[2022-09-23] MEDS: DOCUSATE SODIUM 100 MG CAPSULE PO SCH (21:00)
[2022-09-24] VITALS (7 sets, daily range): BP systolic 121–170; BP diastolic 45–76
[2022-09-24] MEDS: PANTOPRAZOLE SODIUM 40 MG TABLET.DR PO SCH (07:57)
[2022-09-24] MEDS: LEVOTHYROXINE SODIUM 50 MCG TABLET PO SCH (07:57)
[2022-09-24] MEDS: ESTRADIOL 1 MG TABLET PO SCH (08:10)
[2022-09-24] MEDS: GLUCERNA SHAKE 237 ML CAN PO SCH (08:10)
[2022-09-24] MEDS: FERROUS GLUCONATE 324 MG TABLET PO SCH (08:10)
[2022-09-24] MEDS: ENOXAPARIN SODIUM 40 MG/0.4 ML DISP.SYRIN SQ SCH (08:12)
--- NOTE | 2022-09-24 09:30 | NUR ---
Outside box of [email or web address] did not scan this morning. Will scan inner syringe from now on.
[2022-09-24] MEDS: AMLODIPINE 5 MG TABLET PO SCH (11:31)
[2022-09-24] MEDS: hydrALAZINE HCL 25 MG TABLET PO PRN ×2 (11:32→18:22)
--- NOTE | 2022-09-24 11:33 | NUR ---
Pt's BP now sitting is 176/63 HR 68, supine BP was 158/68 and then sitting was 168/65 5-[address] to Dr. Garcia about it. Gave both Apresoline and Norvasc per MD order, checked with gabriel Foy RN and Dr. Garcia aware.
[2022-09-24 12:11] LABS: *OCCULT BLOOD STOOL NEGATIVE (NEGATIVE)
--- NOTE | 2022-09-24 15:31 | NUR ---
BLOOD TRANSFUSION CONSENT SIGNED: Dr. Garcia spoke to pt in person and spoke to pt's sons on speaker phone to discuss blood transfusion. Dr. Garcia said that he spoke to pt's doctor, Dr. Rankin, and they agreed that she needs the blood transfusion. Pt and her 2 sons agreed as well.
[2022-09-24] MEDS: HYDROCODONE/APAP 10-325 MG TABLET PO PRN ×2 (17:38→23:57)
--- NOTE | 2022-09-24 19:00 | NUR ---
1 unit prbc infusing via left hand heplock. Pt tolerating blood, no reaction verbalized or noted
[2022-09-24] MEDS: DOCUSATE SODIUM 100 MG CAPSULE PO SCH (21:00)
--- NOTE | 2022-09-24 22:15 | NUR ---
Blood transfusion completed. Vitals stable. No transfusion reaction noted or verbalized
[2022-09-24] MEDS: ZOLPIDEM 5 MG TABLET PO PRN (23:58)
[2022-09-25 04:00] VITALS: BP 154/68
[2022-09-25] MEDS: LEVOTHYROXINE SODIUM 50 MCG TABLET PO SCH (06:21)
[2022-09-25] MEDS: PANTOPRAZOLE SODIUM 40 MG TABLET.DR PO SCH (06:21)
[2022-09-25 07:03] LABS: HEMATOCRIT 26.8 % (31.2-41.9); MEAN CORPUSCULAR HEMOGLOBIN 30.2 uug (24.7-32.8); MEAN CORPUSCULAR VOLUME 90.3 fL (75.5-95.3); PLATELET COUNT (AUTO) 320 K/uL (179-408)
[2022-09-25 07:38] VITALS: BP 171/69
[2022-09-25] MEDS: ESTRADIOL 1 MG TABLET PO SCH (08:43)
[2022-09-25] MEDS: FERROUS GLUCONATE 324 MG TABLET PO SCH (08:43)
[2022-09-25] MEDS: AMLODIPINE 5 MG TABLET PO SCH (08:45)
[2022-09-25] MEDS: HYDROCODONE/APAP 10-325 MG TABLET PO PRN ×3 (08:45→22:13)
[2022-09-25] MEDS: ENOXAPARIN SODIUM 40 MG/0.4 ML DISP.SYRIN SQ SCH (08:46)
[2022-09-25] MEDS: GLUCERNA SHAKE 237 ML CAN PO SCH (08:47)
[2022-09-25 15:58] VITALS: BP 147/51
--- NOTE | 2022-09-25 19:55 | NUR ---
RECEIVED REPORT FROM YUKI HOOKS, NOC SHIFT. PATIENT IS ALERT & ORIENTED X4, AND SPEAKS [place]. VITAL SIGNS STABLE. PATIENT HAD COMPLAINT OF PAIN. RN GAVE PAIN MEDICATIONS ORDERED BY MD. PATIENT EXPRESSED COMFORTABLE. PATIENT PARTICIPATES WITH PHYSICAL AND OCCUPATIONAL THERAPY SCHEDULED. PATIENT TOLERATES PO AND DIET WELL. IV INFILTRATED. RN REMOVED IV. CATHETER TIP INTACT. NO ACUTE DISTRESS. ALL NEEDS MET AT THIS TIME. FALL PRECAUTIONS OBSERVED. CALL LIGHT WITHIN REACH. ENDORSED CARE TO YUKI BALDWIN, NOC SHIFT FOR CONTINUATION OF CARE.
[2022-09-25 20:00] VITALS: BP 116/59
[2022-09-25] MEDS: DOCUSATE SODIUM 100 MG CAPSULE PO SCH (20:32)
[2022-09-25] MEDS: ZOLPIDEM 5 MG TABLET PO PRN (22:13)
[2022-09-26 04:27] VITALS: BP 149/63
--- NOTE | 2022-09-26 04:38 | NUR ---
Awake alert and oriented x4 All needs attended and met. Fall precautions maintained. Left hip with steristrips intact with dressing in placed. Medicated for pain as needed, with relief obtained. Sleeping pill given as well. No acute distress noted. Incontinent of urine x2 Kept clean and dry. All meds given without difficulty. VSS. Siderails up for safety.
[2022-09-26] MEDS: PANTOPRAZOLE SODIUM 40 MG TABLET.DR PO SCH (06:07)
[2022-09-26] MEDS: LEVOTHYROXINE SODIUM 50 MCG TABLET PO SCH (06:07)
[2022-09-26 08:00] VITALS: BP 151/65
[2022-09-26] MEDS: AMLODIPINE 5 MG TABLET PO SCH (08:52)
[2022-09-26] MEDS: ENOXAPARIN SODIUM 40 MG/0.4 ML DISP.SYRIN SQ SCH (08:52)
[2022-09-26] MEDS: HYDROCODONE/APAP 10-325 MG TABLET PO PRN ×3 (08:55→22:05)
[2022-09-26] MEDS: ESTRADIOL 1 MG TABLET PO SCH (09:16)
[2022-09-26] MEDS: FERROUS GLUCONATE 324 MG TABLET PO SCH (09:17)
[2022-09-26 16:00] VITALS: BP 142/59
[2022-09-26 20:00] VITALS: BP 124/52
[2022-09-26] MEDS: DOCUSATE SODIUM 100 MG CAPSULE PO SCH (21:32)
[2022-09-26] MEDS: ZOLPIDEM 5 MG TABLET PO PRN (23:09)
[2022-09-27] MEDS: HYDROCODONE/APAP 10-325 MG TABLET PO PRN ×2 (04:00→21:20)
[2022-09-27 04:48] VITALS: BP 150/64
--- NOTE | 2022-09-27 05:29 | NUR ---
[place] PO given per PRN order for complain of pain and effective. Needs attended to and met. Safety measure maintained and call light within reached.
[2022-09-27] MEDS: LEVOTHYROXINE SODIUM 50 MCG TABLET PO SCH (06:28)
[2022-09-27] MEDS: PANTOPRAZOLE SODIUM 40 MG TABLET.DR PO SCH (06:28)
--- NOTE | 2022-09-27 06:30 | NUR ---
Patient refused blood draw this AM. Requesting to have it done a little later today. Informed Lab.
[2022-09-27 07:49] LABS: HEMATOCRIT 30.6 % (31.2-41.9); MEAN CORPUSCULAR HEMOGLOBIN 29.9 uug (24.7-32.8); MEAN CORPUSCULAR VOLUME 92.4 fL (75.5-95.3); PLATELET COUNT (AUTO) 359 K/uL (179-408)
[2022-09-27 08:11] VITALS: BP 165/71
[2022-09-27] MEDS: AMLODIPINE 5 MG TABLET PO SCH (08:34)
[2022-09-27] MEDS: FERROUS GLUCONATE 324 MG TABLET PO SCH (08:36)
[2022-09-27] MEDS: ESTRADIOL 1 MG TABLET PO SCH (08:36)
[2022-09-27] MEDS: ENOXAPARIN SODIUM 40 MG/0.4 ML DISP.SYRIN SQ SCH (09:27)
--- NOTE | 2022-09-27 13:48 | NUR ---
INDIVIDUALIZED PLAN OF CARE THIS WAS OBSERVED AND DONE ON 09/14/22 13:00
--- NOTE | 2022-09-27 14:02 | NUR ---
INTERDISCIPLINARY TEAM CONFERENCE THIS WAS OBSERVED AND DONE ON09/26/22 13:00
[2022-09-27 15:53] VITALS: BP 112/54
--- NOTE | 2022-09-27 18:24 | NUR ---
Pt. has been stable during the shift. No c/o pain. Call light within reach. All need attended and met. No acute distress noted. Noted walking with PT. Will keep monitoring the patient.
[2022-09-27 20:00] VITALS: BP 139/53
[2022-09-27] MEDS: DOCUSATE SODIUM 100 MG CAPSULE PO SCH (20:44)
[2022-09-27] MEDS: ZOLPIDEM 5 MG TABLET PO PRN (22:02)
[2022-09-27] MEDS: diphenhydrAMINE 25 MG CAP PO PRN (22:02)
[2022-09-28 04:00] VITALS: BP 112/58
--- NOTE | 2022-09-28 05:00 | NUR ---
Quiet night. AAOx4 OOB with walker to the BR. Voiding well. All needs attended. Fall precautions maintained. Siderails up for safety. All due meds given. Pain meds given as needed. Right hip incision clean and dry with steri strips [place]AP[place]IN[place]. For possible d/c to home today.
[2022-09-28] MEDS: PANTOPRAZOLE SODIUM 40 MG TABLET.DR PO SCH (06:10)
[2022-09-28] MEDS: LEVOTHYROXINE SODIUM 50 MCG TABLET PO SCH (06:10)
[2022-09-28] MEDS: HYDROCODONE/APAP 10-325 MG TABLET PO PRN ×2 (06:34→14:38)
[2022-09-28 07:48] VITALS: BP 155/63
[2022-09-28] MEDS: AMLODIPINE 5 MG TABLET PO SCH (08:29)
[2022-09-28] MEDS: FERROUS GLUCONATE 324 MG TABLET PO SCH (08:30)
[2022-09-28] MEDS: ESTRADIOL 1 MG TABLET PO SCH (08:31)
[2022-09-28] MEDS: ENOXAPARIN SODIUM 40 MG/0.4 ML DISP.SYRIN SQ SCH (09:07)
[2022-09-28 15:08] VITALS: BP 112/54
--- NOTE | 2022-09-28 15:35 | NUR ---
Pt. noted to be stable upon the discharge. Personal belonging returned to the patient. Skin assessment done and pictures included in the chart. Pt. left with no IV line. All necessary document signed. Pt. left via ambulance.
== END 2022-09-28 15:45 | disposition home health service (06) | DRG 559 ==
PROVIDERS: ADMIT Physical Medicine & Rehabilitation Pain Medicine; ATTEND Physical Medicine & Rehabilitation Pain Medicine
DX: S72.002D Fracture of unspecified part of neck of left femur, subsequent encounter for closed fracture with routine healing (principal); E43 Unspecified severe protein-calorie malnutrition; N17.0 Acute kidney failure with tubular necrosis; D62 Acute posthemorrhagic anemia; D68.69 Other thrombophilia; E03.9 Hypothyroidism, unspecified; S32.402D Unspecified fracture of left acetabulum, subsequent encounter for fracture with routine healing; W18.30XD Fall on same level, unspecified, subsequent encounter; Z90.710 Acquired absence of both cervix and uterus; D72.829 Elevated white blood cell count, unspecified; E78.5 Hyperlipidemia, unspecified; E86.1 Hypovolemia; F32.A Depression, unspecified; K21.9 Gastro-esophageal reflux disease without esophagitis; K59.00 Constipation, unspecified; M89.8X9 Other specified disorders of bone, unspecified site; Z20.822 Contact with and (suspected) exposure to COVID-19; Z90.49 Acquired absence of other specified parts of digestive tract; Z88.5 Allergy status to narcotic agent; R19.7 Diarrhea, unspecified
CPT/HCPCS: 36415; 71045; 73502; 83550; 83735; 84100; 85025; 86850; 86900; 86901; 86920; 97535-GO-CO; A4663; J1200; J1650; J1885; P9016; Q0163